=== PATIENT | male | born 2000 | race Caucasian/White ===

== ENCOUNTER 2023-01-26 14:58 | Emergency (ER) | payer OTHER ==
[2023-01-26 15:10] VITALS: BP 129/72
[2023-01-26 15:26] LABS: RAPID STREP SCREEN Negative (Negative)
--- NOTE | 2023-01-26 16:08 | ED Physician Documentation ---
History of Present Illness - Stated complaint Stated Complaint: SWOLLEN THROAT,COUGH - Chief complaint Chief Complaint: Heent - Additonal information Additional information: Patient is 22-year-old male presenting with chief complaint sore throat. Ongoing for the last few days. Girlfriend having similar symptoms and tested negative for strep earlier this morning. States the [facility] told him to come to the emergency department for an evaluation. Review of Systems Constitutional: denies: Fever Eyes: denies: Loss of vision Ears: denies: Loss of hearing Nose: denies: Rhinorrhea / runny nose Throat: reports: Sore throat Respiratory: denies: Dyspnea GI: denies: Abdominal Swelling PD PAST MEDICAL HISTORY - Present Medications Home Medications: Ambulatory Orders Medication Instructions Recorded Confirmed Amoxicillin 500 mg PO TID #21 cap 01/28/23 - Allergies Allergies/Adverse Reactions: Allergies Allergy/AdvReac Type Severity Reaction Status Date / Time No Known Drug Allergies Allergy Verified 01/26/23 15:09 PD ED PE NORMAL - General General: Alert and oriented X 3 - HEENT HEENT: Atraumatic, PERRL, EOMI, Ears normal, Moist mucous membranes, Pharynx benign, Dentition benign, Other - Neck Neck: Supple, no meningeal sign, No bony TTP, No adenopathy, Thyroid normal, No JVD, No bruit, C-Spine cleared by NEXUS criteria - Cardiac Cardiac: RRR - Respiratory Respiratory: No respiratory distress - Abdomen Abdomen: Normal bowel sounds Results - Vitals Vitals: Oxygen O2 Source Room air - Labs Labs: Microbiology 01/26/23 15:10 Group A Strep Throat Culture - Final Throat Beta Hemolytic Strep Group G Laboratory Tests 01/26/23 15:10 Group A Strep Rapid Negative PD Medical Decision Making - ED course Complexity details: reviewed results, d/w patient ED course: Patient 22-year-old male presenting with sore throat. Rapid strep screen negative. No indications of deep space neck infection. Given dose Decadron here in the emergency department for symptomatic management. Culture pending. Encouraged follow-up with primary care or return to the emergency department as needed. Departure - Departure Disposition: 01 Home, Self Care Clinical Impression: Pharyngitis Prescriptions: Amoxicillin 500 mg PO TID #21 cap Comments: Thank you for allowing us to care for you today would be general. Your strep screening swab was negative. We will be sending it for culture and further testing and if this is positive we will contact you directly. I recommend regular small sips of warm fluid as well as salt water gargles to help with your symptoms. Please make a follow-up appoint with your primary care doctor. If it anytime you have new or worsening symptoms please not hesitate to return. Forms: Activity restrictions Discharge Date/Time: 01/26/23 16:33
[2023-01-26] MEDS ORDERED: CHERRY SYRUP 10 ML UDC PO ONE (16:23)
[2023-01-26] MEDS ORDERED: DEXAMETHASONE 10 MG/ML VIAL PO STA (16:24)
--- NOTE | 2023-01-28 11:55 | ED Physician Documentation ---
ED Addendum - Addendum Addendum: 01/28/23 11:51 The patient's throat culture came back showing beta-hemolytic group G strep. They had been discharged without antibiotics on low suspicion clinically. The patient is not allergic to any medications. Their preferred pharmacy is [facility]. We will have nursing staff call the patient to advise of that. I did send the prescription Amox 500 tid x 7 dats to [facility], [place] transmitted electronically.
== END 2023-01-26 16:33 | disposition home or self-care (01) ==
LOC: ED 14:58
DX: J02.9 Acute pharyngitis, unspecified (principal); J02.0 Streptococcal pharyngitis; B95.4 Other streptococcus as the cause of diseases classified elsewhere
CPT/HCPCS: 87070; 87077; 87430; 99283; A9270